=== PATIENT | female | born 1950 | race African-American/Black ===

== ENCOUNTER → 2019-12-06 | Day surgery (SDC) | payer MEDICARE, BC ==
[~2019-12-06] MED LIST: ALIVE MULTIVITAMIN; FENTANYL CITRATE/PF 100MCG/2 ML INJ ONE; GABAPENTIN300 MG PO; HYDROCHLOROTHIAZIDE; MAGNESIUM OXID400 MG PO; METOPROLOL SUCC25 MG; MIDAZOLAM HCL 2 MG/2 ML VIAL ONE; OR PHACO EYE KIT ONE; PREOP PHACO EYE KIT ONE; TELMISARTAN; VITAMIN D2400 UNIT
--- OUTSIDE RECORDS SUMMARY | 2019-12-06 09:58 | XMS REPORT | Summary of Care ---
Author Author Erica Dickson M.A. Unknown Address Unknown Phone Unavailable Care Team Providers Care Vending Supervisor Name Role Phone JASMIN Beltran, GO Unavailable Unavailable OLGA NG M.D. Unavailable Unavailable JUVENAL SINGLETARY Unavailable Unavailable OLGA NG MD Unavailable Unavailable Unavailable Unavailable Functional Status Name Dates Details Functional status health issues are not documented Status: Name Dates Details Cognitive status health issues are not documented Status: Problems Name Dates Details Sarcoid Iritis (364.11) Status: Active Pain in hand (729.5, M79.643) Status: Active Allergic rhinitis (477.9, J30.9) Status: Active Urinary tract infection (599.0, N39.0) Status: Active Lateral epicondylitis (726.32, M77.10) Status: Active Varicose veins (454.9, I83.90) Status: Active Vitreous disorder (379.29, H43.9) Status: Active Lipoma (214.9, D17.9) Status: Active Arthralgia of multiple sites (719.49, M25.50) Status: Active Edema (782.3, R60.9) Status: Active Esophageal reflux (530.81, K21.9) Status: Active Sinusitis (473.9, J32.9) Status: Active Peripheral vertigo (386.10, H81.399) Status: Active Anxiety (300.00, F41.9) Status: Active Headache (784.0, R51) Status: Active Facial paresthesia (782.0, R20.2) Status: Active Obesity (BMI 30.0-34.9) (278.00, E66.9) Status: Active Hirsutism (704.1, L68.0) Status: Active Visit for screening mammogram (V76.12, Z12.31) Status: Active Colon cancer screening (V76.51, Z12.11) Status: Active Vertigo (780.4, R42) Status: Active Cervicalgia (723.1, M54.2) Status: Active Nausea with vomiting (787.01, R11.2) Status: Active Axillary pain, right (729.5, M79.621) Status: Active Hematochezia (578.1, K92.1) Status: Active Abnormal x-ray of lumbar spine (793.7, R93.7) Status: Active Plantar fasciitis (728.71, M72.2) Status: Active Heel pain (729.5, M79.673) Status: Active Heel spur, right (726.73, M77.31) Status: Active Abdominal pain, RUQ (right upper quadrant) (789.01, R10.11) Status: Active Abdominal bloating (787.3, R14.0) Status: Active Sarcoidosis (135, D86.9) Status: Active Renal cyst, left (753.10, N28.1) Status: Active Earache (388.70, H92.09) Status: Active Dizziness (780.4, R42) Status: Active Tingling in extremities (782.0, R20.2) Status: Active Arthralgia (719.40, M25.50) Status: Active Degenerative cervical spinal stenosis (723.0, M48.02) Status: Active Dilated bile duct (576.8, K83.8) Status: Active Cataract, bilateral (366.9, H26.9) Status: Active Pain, abdominal, nonspecific (789.00, R10.9) Status: Active Abnormal MRI, neck (793.99, R93.89) Status: Active Cervical radiculopathy (723.4, M54.12) Status: Active Sciatica of right side without back pain (724.3, M54.31) Status: Active Hospital discharge follow-up (V67.59, Z09) Status: Active Right hip pain (719.45, M25.551) Status: Active Constipation (564.00, K59.00) Status: Active Essential (primary) hypertension (401.9, I10) Status: Active Hyperlipidemia (272.4, E78.5) Status: Active Microalbuminuria (791.0, R80.9) Status: Active TIA (transient ischemic attack) (435.9, G45.9) Status: Active Vitamin D insufficiency (268.9, E55.9) Status: Active Obstructive sleep apnea (327.23, G47.33) Status: Active BMI 30.0-30.9,adult (V85.30, Z68.30) Status: Active Medications Name Dates Details ProAir HFA 108 (90 Base) MCG/ACT Inhalation Aerosol Solution INHALE 1 TO 2 PUFFS EVERY 4 TO 6 HOURS NEEDED. Quantity: 1 OLGA NG M.D. Active Gabapentin 300 MG Oral Capsule Take 1 capsule by mouth twice a day * Quantity: 60 Refills: 2 OLGA NG M.D. * Start : 26-May-2014 Active Metoprolol Succinate ER 50 MG Oral Tablet Extended Release 24 Hour TAKE 1 TABLET DAILY * Quantity: 90 Refills: 0 GO CASTELLANOS M.D. * Start : 02-Dec-2014 Active Vitamin D (Ergocalciferol) 1.25 MG (75508 UT) Oral Capsule TAKE 1 CAPSULE WEEKLY. * Quantity: 12 Refills: 0 OLGA NG M.D. * Start : 30-May-2015 Active Magnesium Oxide 400 MG Oral Tablet TAKE 2 TABLET TWICE DAILY * Refills: 0 * Start : 15-Jan-2017 Active Meloxicam 15 MG Oral Tablet TAKE 1 TABLET BY MOUTH EVERY DAY--TAKE WITH FOOD * Quantity: 30 Refills: 0 JUVENAL SINGLETARY * Start : 31-Jan-2019 Active Telmisartan-HCTZ 80-12.5 MG Oral Tablet * Refills: 0 OLGA NG M.D. * Start : 05-Aug-2019 Active Allergies and Adverse Reactions Name Dates Details No Known Drug Allergies (Allergy) Status: Active Past Medical History Name Dates Details History of Abnormal auditory perception (388.40, H93.299) Status: Resolved History of allergic rhinitis (V12.69, Z87.09) Status: Resolved History of chest pain (V13.89, Z87.898) Status: Resolved History of chronic pharyngitis (V12.69, Z87.09) Status: Resolved History of Costochondritis (733.6, M94.0) Status: Resolved History of Cough (786.2, R05) Status: Resolved History of Cough variant asthma (493.82, J45.991) Status: Resolved History of diverticulitis of colon (V12.79, Z87.19) Status: Resolved History of esophageal reflux (V12.79, Z87.19) Status: Resolved History of headache (V13.89, Z87.898) Status: Resolved History of hiatal hernia (V12.79, Z87.19) Status: Resolved History of Joint pain of lower extremity (719.48, M25.50) Status: Resolved History of pleurisy (V12.69, Z87.09) Status: Resolved History of Tinnitus, objective (388.32, H93.19) Status: Resolved Procedures Procedure Dates Details History of Total Abdominal Hysterectomy Completed History of Cholecystectomy Completed History of Appendectomy Completed Immunization Name Dates Details Tdap (Boostrix) on: 2008 Zoster (Zostavax) Lot #: [id number] on: 02-Jun-2014 Fluzone 9 MCG/STRAIN [place] Lot #: [id number] on: 25-Jul-2016 Prevnar 13 Intramuscular Suspension Lot #: [id number] on: 01-Feb-2018 Fluzone High-Dose 0.5 ML Intramuscular Suspension Prefilled Syringe Lot #: [id number] on: 05-Aug-2019 Pneumovax 23 25 MCG/0.5ML Injection Injectable Lot #: [id number] on: 05-Aug-2019 Shingrix 50 MCG/0.5ML Intramuscular Suspension Reconstituted Lot #: [id number] on: 19-Sep-2019 Family History Name Dates Details Family history of Asthma (V17.5) Comments: Family History Status: Active Family history of Congenital Heart Disease Comments: Family History Status: Active Name Dates Details Family history of arthritis (V17.7, Z82.61) Status: Active Name Dates Details Family history of Coronary Artery Disease (V17.49) Status: Active Family history of Hypertension (V17.49) Status: Active Social History Name Dates Details - Status: Name Dates Details Never smoker Vital Signs Date Test Result Details [id number] BP Systolic 122 mm[Hg] Status: Comments: Location: [facility]; Position: Sitting BP Diastolic 80 mm[Hg] Status: Comments: Location: [facility]; Position: Sitting Height 66.5 in Status: Weight 196.5 lb Status: Body Mass Index Calculated 31.24 kg/m2 Status: Body Surface Area Calculated 2 m2 Status: Temperature 97.5 f Status: Comments: Method: Oral Heart Rate 57 /min Status: Results Date Description Value Details Results not documented Plan of Care Name Dates Details Planned Observations Planned Goals not documented Instructions Name Dates Details Instructions not documented Encounters Appointment; OLGA NG M.D. Encounter Diagnosis: Problem not documented On: 15-Dec-2017 14:00 Appointment; OLGA NG M.D. Encounter Diagnosis: Problem not documented On: 01-Feb-2018 11:00 Appointment; [facility] Encounter Diagnosis: Problem not documented On: 04-Feb-2018 10:00 Appointment; CHELSIE COOPER APRN Encounter Diagnosis: Problem not documented On: 01-Nov-2018 19:20 Appointment; OLGA NG M.D. Encounter Diagnosis: Problem not documented On: 22-Dec-2018 14:20 Appointment; OLGA NG M.D. Encounter Diagnosis: Problem not documented On: 05-Aug-2019 11:00 Appointment; [facility] Encounter Diagnosis: Problem not documented On: 19-Sep-2019 14:30 Appointment; OLGA NG M.D. Encounter Diagnosis: Problem not documented On: 22-Nov-2019 11:20
--- OUTSIDE RECORDS SUMMARY | 2019-12-06 09:58 | XMS REPORT | Summary of Care ---
Author Author BERENICE Beltran, OLGA Celaya Unknown Address Unknown Phone Unavailable Care Team Providers Care Tube And Manifold Builder Name Role Phone JASMIN Beltran, GO Unavailable [...] 02-Dec-2014 Active Vitamin D (Ergocalciferol) 1.25 MG (03449 UT) Oral Capsule TAKE 1 CAPSULE WEEKLY. [...] (Boostrix) on: 2008 Zoster (Zostavax) Lot #: [id number] on: 02-Jun-2014 Fluzone 9 MCG/STRAIN [place] Lot #: [id number] on: 25-Jul-2016 Prevnar 13 Intramuscular Suspension Lot #: [id number] on: 01-Feb-2018 Fluzone High-Dose 0.5 ML Intramuscular Suspension Prefilled Syringe Lot #: [id number] on: 05-Aug-2019 Pneumovax 23 25 MCG/0.5ML Injection Injectable Lot #: [id number] on: 05-Aug-2019 Shingrix 50 MCG/0.5ML Intramuscular Suspension [...] smoker Vital Signs Date Test Result Details No Known Vitals to report Results Date Description Value Details Results not documented Plan of Care Name Dates Details Planned Observations Planned Goals not documented Planned Encounters Appointment; OLGA NG M.D. On: 22-Nov-2019 11:20 Interventions Provided Medication Changes* Gabapentin 300 MG Oral Capsule - Renew Instructions Name Dates Details Instructions not documented Encounters Appointment; OLGA NG M.D. Encounter Diagnosis: Problem not documented On: 15-Dec-2017 14:00 Appointment; OLGA NG M.D. Encounter Diagnosis: Problem not documented On: 01-Feb-2018 11:00 Appointment; TRACI RAMOS Encounter Diagnosis: Problem not documented On: 04-Feb-2018 10:00 Appointment; CHELSIE COOPER NP Encounter Diagnosis: Problem not documented On: 01-Nov-2018 19:20 Appointment; OLGA NG M.D. Encounter Diagnosis: Problem not documented On: 22-Dec-2018 14:20 Appointment; OLGA NG M.D. Encounter Diagnosis: Problem not documented On: 05-Aug-2019 11:00 Appointment; [facility] Encounter Diagnosis: Problem not documented On: 19-Sep-2019 14:30
--- OUTSIDE RECORDS SUMMARY | 2019-12-06 09:58 | XMS REPORT | Summary of Care ---
Author Author BERENICE Beltran, OLGA Celaya Unknown Address Unknown Phone Unavailable Care Team Providers Care Bottle Hop Name Role Phone OLGA NG M.D. Unavailable Unavailable JUVENAL SINGLETARY Unavailable Unavailable OLGA NG MD Unavailable Unavailable Unavailable Unavailable Functional Status Name Dates Details Functional status health issues are not documented Status: Name Dates Details Cognitive status health issues are not documented Status: Problems Name Dates Details Sarcoid Iritis (364.11) Status: Active Allergic rhinitis (477.9, J30.9) Status: Active Varicose veins (454.9, I83.90) Status: Active Lipoma (214.9, D17.9) Status: Active Arthralgia of multiple sites (719.49, M25.50) Status: Active Esophageal reflux (530.81, K21.9) Status: Active Anxiety (300.00, F41.9) Status: Active Visit for screening mammogram (V76.12, Z12.31) Status: Active Colon cancer screening (V76.51, Z12.11) Status: Active Plantar fasciitis (728.71, M72.2) Status: Active Heel spur, right (726.73, M77.31) Status: Active Sarcoidosis (135, D86.9) Status: Active Renal cyst, left (753.10, N28.1) Status: Active Degenerative cervical spinal stenosis (723.0, M48.02) Status: Active Cervical radiculopathy (723.4, M54.12) Status: Active Sciatica of right side without back pain (724.3, M54.31) Status: Active Constipation (564.00, K59.00) Status: Active Hyperlipidemia (272.4, E78.5) Status: Active Microalbuminuria (791.0, R80.9) Status: Active TIA (transient ischemic attack) (435.9, G45.9) Status: Active Vitamin D insufficiency (268.9, E55.9) Status: Active Obstructive sleep apnea (327.23, G47.33) Status: Active BMI 30.0-30.9,adult (V85.30, Z68.30) Status: Active Cataract, bilateral (366.9, H26.9) Status: Active Pre-operative clearance (V72.84, Z01.818) Status: Active Essential (primary) hypertension (401.9, I10) Status: Active Medications Name Dates Details Gabapentin 300 MG Oral Capsule Take 1 capsule by mouth twice a day Quantity: 60 OLGA NG M.D. * Start : 26-May-2014 Active Metoprolol Succinate ER 25 MG Oral Tablet Extended Release 24 Hour * Refills: 0 OLGA NG M.D. * Start : 02-Dec-2014 Active Vitamin D (Ergocalciferol) 1.25 MG (33665 UT) Oral Capsule TAKE 1 CAPSULE WEEKLY. * Quantity: 12 Refills: 0 OLGA NG M.D. * Start : 30-May-2015 Active Magnesium Oxide 400 MG Oral Tablet TAKE 2 TABLET TWICE DAILY * Refills: 0 * Start : 15-Jan-2017 Active Meloxicam 15 MG Oral Tablet TAKE 1 TABLET BY MOUTH EVERY DAY--TAKE WITH FOOD * Quantity: 30 Refills: 0 JUVENAL SINGLETARY Start : 31-Jan-2019 Active Telmisartan-HCTZ 80-12.5 MG Oral Tablet * Refills: 0 OLGA NG M.D. * Start : 05-Aug-2019 Active Allergies and Adverse Reactions Name Dates Details No Known Drug Allergies (Allergy) Status: Active Past Medical History Name Dates Details History of Abdominal bloating (787.3, R14.0) Status: Resolved History of Abdominal pain, RUQ (right upper quadrant) (789.01, R10.11) Status: Resolved History of Abnormal auditory perception (388.40, H93.299) Status: Resolved History of Abnormal MRI, neck (793.99, R93.89) Status: Resolved History of Abnormal x-ray of lumbar spine (793.7, R93.7) Status: Resolved History of allergic rhinitis (V12.69, Z87.09) Status: Resolved History of Axillary pain, right (729.5, M79.621) Status: Resolved History of bloody stools (V12.79, Z87.19) Status: Resolved History of chest pain (V13.89, Z87.898) Status: Resolved History of chronic pharyngitis (V12.69, Z87.09) Status: Resolved History of Costochondritis (733.6, M94.0) Status: Resolved History of Cough (786.2, R05) Status: Resolved History of Cough variant asthma (493.82, J45.991) Status: Resolved History of Dilated bile duct (576.8, K83.8) Status: Resolved History of diverticulitis of colon (V12.79, Z87.19) Status: Resolved History of dizziness (V13.89, Z87.898) Status: Resolved History of earache (V12.49, Z86.69) Status: Resolved History of edema (V13.89, Z87.898) Status: Resolved History of esophageal reflux (V12.79, Z87.19) Status: Resolved History of Facial paresthesia (782.0, R20.2) Status: Resolved History of headache (V13.89, Z87.898) Status: Resolved History of headache (V13.89, Z87.898) Status: Resolved History of Heel pain (729.5, M79.673) Status: Resolved History of hiatal hernia (V12.79, Z87.19) Status: Resolved History of Hirsutism (704.1, L68.0) Status: Resolved History of Hospital discharge follow-up (V67.59, Z09) Status: Resolved History of joint pain (V13.59, Z87.39) Status: Resolved History of Joint pain of lower extremity (719.48, M25.50) Status: Resolved History of lateral epicondylitis (V13.89, Z87.898) Status: Resolved History of nausea and vomiting (V12.79, Z87.898) Status: Resolved History of neck pain (V13.59, Z87.39) Status: Resolved History of Obesity (BMI 30.0-34.9) (278.00, E66.9) Status: Resolved History of Pain in hand (729.5, M79.643) Status: Resolved History of Pain, abdominal, nonspecific (789.00, R10.9) Status: Resolved History of Peripheral vertigo (386.10, H81.399) Status: Resolved History of pleurisy (V12.69, Z87.09) Status: Resolved History of Right hip pain (719.45, M25.551) Status: Resolved History of sinusitis (V12.69, Z87.09) Status: Resolved History of Tingling in extremities (782.0, R20.2) Status: Resolved History of Tinnitus, objective (388.32, H93.19) Status: Resolved History of urinary tract infection (V13.02, Z87.440) Status: Resolved History of vertigo (V12.49, Z87.898) Status: Resolved Procedures Procedure Dates Details [QLH] CMP W/EGFR Date: 22-Nov-2019 [QLH] CBC (INCLUDES DIFF/PLT) Date: 22-Nov-2019 [QLH] PROTHROMBIN W/INR + PARTIAL THROMBOPLASTIN TIMES Date: 22-Nov-2019 History of Total Abdominal Hysterectomy Completed History of Cholecystectomy Completed History of Appendectomy Completed Immunization Name Dates Details Tdap (Boostrix) on: 2008 Zoster (Zostavax) Lot #: [id number] on: 02-Jun-2014 Fluzone 9 MCG/STRAIN [place] Lot #: [id number] on: 25-Jul-2016 Prevnar 13 Intramuscular Suspension Lot #: [id number] on: 01-Feb-2018 Fluzone High-Dose 0.5 ML Intramuscular Suspension Prefilled Syringe Lot #: [id number] on: 05-Aug-2019 Pneumovax 23 25 MCG/0.5ML Injection Injectable Lot #: [id number] on: 05-Aug-2019 Shingrix 50 MCG/0.5ML Intramuscular Suspension [...] smoker Vital Signs Date Test Result Details [id number] BP Systolic 122 mm[Hg] Status: Comments: Location: [facility]; Position: Sitting BP Diastolic 80 mm[Hg] Status: Comments: Location: [facility]; Position: Sitting Height 66.5 in Status: Weight 196.5 lb Status: Body Mass Index Calculated 31.24 kg/m2 Status: Body Surface Area Calculated 2 m2 Status: Temperature 97.5 f Status: Comments: Method: Oral Heart Rate 57 /min Status: Results Date Description Value Details Results not documented Plan of Care Name Dates Details Planned Observations Planned Goals not documented Interventions Provided Labs/Procedures/Imaging* [QLH] CBC (INCLUDES DIFF/PLT); To Be Done: 22 Nov 2019 * [QLH] CMP W/EGFR; To Be Done: 22 Nov 2019 * [QLH] PROTHROMBIN W/INR + PARTIAL THROMBOPLASTIN TIMES; To Be Done: 22 Nov 2019 * EKG (In Office); Done: 22 Nov 2019 Discussion/Summary* Chest x ray was done in the office today : no acute finding awaiting formal report Instructions Name Dates Details Instructions not documented Encounters Appointment; OLGA NG M.D. Encounter Diagnosis: Problem not documented On: 15-Dec-2017 14:00 Appointment; OLGA NG M.D. Encounter Diagnosis: Problem not documented On: 01-Feb-2018 11:00 Appointment; [facility] Encounter Diagnosis: Problem not documented On: 04-Feb-2018 [...]
--- OUTSIDE RECORDS SUMMARY | 2019-12-06 09:58 | XMS REPORT | Summary of Care ---
Author Author BERENICE Beltran, OLGA Celaya Unknown Address Unknown Phone Unavailable Care Team Providers Care Saxophone Assembler Name Role Phone OLGA NG M.D. Unavailable [...] by mouth twice a day Quantity: 60 BERENICE Beltran, BROWNURICE * Start : 26-May-2014 Active Metoprolol Succinate ER 25 MG Oral Tablet Extended Release 24 Hour * Refills: 0 OLGA NG M.D. * Start : 02-Dec-2014 Active Vitamin D (Ergocalciferol) 1.25 MG (61102 UT) Oral Capsule TAKE 1 CAPSULE WEEKLY. * Quantity: 12 Refills: 0 OLGA NG M.D. * Start : 30-May-2015 Active Magnesium Oxide 400 MG Oral Tablet TAKE 2 TABLET TWICE DAILY * Refills: 0 M.A. * Start : 15-Jan-2017 Active Meloxicam 15 MG Oral Tablet TAKE 1 TABLET BY MOUTH EVERY DAY--TAKE WITH FOOD * Quantity: 30 Refills: 0 FABRICIO P.AJUVENAL Marshall * Start : 31-Jan-2019 Active Telmisartan-HCTZ 80-12.5 [...] (Boostrix) on: 2008 Zoster (Zostavax) Lot #: [id number] on: 02-Jun-2014 Fluzone 9 MCG/STRAIN [place] Lot #: [id number] on: 25-Jul-2016 Prevnar 13 Intramuscular Suspension Lot #: [id number] on: 01-Feb-2018 Fluzone High-Dose 0.5 ML Intramuscular Suspension Prefilled Syringe Lot #: [id number] on: 05-Aug-2019 Pneumovax 23 25 MCG/0.5ML Injection Injectable Lot #: [id number] on: 05-Aug-2019 Shingrix 50 MCG/0.5ML Intramuscular Suspension [...] smoker Vital Signs Date Test Result Details [id number] BP Systolic 122 mm[Hg] Status: Comments: Location: [facility]; Position: Sitting BP Diastolic 80 mm[Hg] Status: Comments: Location: [facility]; Position: Sitting Height 66.5 in Status: Weight 196.5 lb Status: Body Mass Index Calculated 31.24 kg/m2 Status: Body Surface Area Calculated 2 m2 Status: Temperature 97.5 f Status: Comments: Method: Oral Heart Rate 57 /min Status: Results Date Description Value Details [id number] [U] XRAY CHEST 2 VWS [id number] XR CHEST 2 VWS EXAM: XR CHEST 2 VWS DATE: 11/22/2019 11:29 AM AUTOTRANSFUSIONIST INDICATION: Preop clearance COMPARISON: 02/07/2014 TECHNIQUE: PA and lateral chest radiographs DISCUSSION: Lungs are symmetrically expanded.No pulmonary or pleural-based abnormality is identified. Pulmonary vascularity is normal. The heart size is normal. No acute bony abnormality is identified. IMPRESSION: No acute cardiopulmonary abnormality. 11/22/2019 11:38 AM AUTOTRANSFUSIONIST Dawit Garza Plan of Care Name Dates Details Planned Observations Planned Goals not documented Interventions Provided Labs/Procedures/Imaging* [U] XRAY CHEST 2 VWS [id number]; Done: 22 Nov 2019 Discussion/Summary* chest x ray is normal Instructions Name Dates Details Instructions not documented [...]
--- OUTSIDE RECORDS SUMMARY | 2019-12-06 09:59 | XMS REPORT | Summary of Care ---
Author Author BERENICE Beltran, OLGA Celaya Unknown Address Unknown Phone Unavailable Care Team Providers Care Applied Behavior Specialist Name Role Phone OLGA NG M.D. 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 * Start : 02-Dec-2014 Active Vitamin D (Ergocalciferol) 1.25 MG (26444 UT) Oral Capsule TAKE 1 CAPSULE WEEKLY. * Quantity: 12 Refills: 0 OLGA NG M.D. * Start : 30-May-2015 Active Magnesium Oxide 400 MG Oral Tablet TAKE 2 TABLET TWICE DAILY * Refills: 0 M.A. * Start : 15-Jan-2017 Active Meloxicam 15 MG Oral Tablet TAKE 1 TABLET BY MOUTH EVERY DAY--TAKE WITH FOOD * Quantity: 30 Refills: 0 FABRICIO Oneill.AJUVENAL Marshall * Start : 31-Jan-2019 Active Telmisartan-HCTZ [...] Status: Resolved Procedures Procedure Dates Details [QLH] CBC (INCLUDES DIFF/PLT) Date: 24-Nov-2019 History of Total Abdominal Hysterectomy Completed History of Cholecystectomy Completed History of Appendectomy Completed Immunization Name Dates Details Tdap (Boostrix) on: 2008 Zoster (Zostavax) Lot #: [id number] on: 02-Jun-2014 Fluzone 9 MCG/STRAIN [place] Lot #: [id number] on: 25-Jul-2016 Prevnar 13 Intramuscular Suspension Lot #: [id number] on: 01-Feb-2018 Fluzone High-Dose 0.5 ML Intramuscular Suspension Prefilled Syringe Lot #: [id number] on: 05-Aug-2019 Pneumovax 23 25 MCG/0.5ML Injection Injectable Lot #: [id number] on: 05-Aug-2019 Shingrix 50 MCG/0.5ML Intramuscular Suspension [...] Details - Status: Name Dates Details Never smoked tobacco (finding) Vital Signs Date Test Result Details 20-[id number]:23 Systolic blood pressure 122 mm[Hg] Status: Comments: Location: RUE; Position: Sitting Diastolic blood pressure 80 mm[Hg] Status: Comments: Location: RUE; Position: Sitting Body height 66.5 in Status: Weight 196.5 lb Status: Body mass index (BMI) [Ratio] 31.24 kg/m2 Status: Body surface area Derived from formula 2 m2 Status: Body temperature 97.5 f Status: Comments: Method: Oral Heart Rate 57 /min Status: Results Date Description Value Details [id number] [U] XRAY CHEST 2 VWS [id number] XR CHEST 2 VWS EXAM: XR CHEST 2 VWS DATE: 11/22/2019 11:29 AM MOSAIC TILER INDICATION: Preop clearance COMPARISON: 02/07/2014 TECHNIQUE: PA and lateral chest radiographs DISCUSSION: Lungs are symmetrically expanded.No pulmonary or pleural-based abnormality is identified. Pulmonary vascularity is normal. The heart size is normal. No acute bony abnormality is identified. IMPRESSION: No acute cardiopulmonary abnormality. 11/22/2019 11:38 AM MOSAIC TILER Dawit Barrosanaeliecer :39 [QLH] CBC (INCLUDES DIFF/PLT) WBC 3.2 {K/CMM} (Below low threshold) Range: 3.7-10.4 RBC 4.18 {M/CMM} (Below low threshold) Range: 4.20-5.40 Hgb 13.3 g/dl Range: 12.0-16.0 Hct 39.8 % Range: 36.0-48.0 MCV 95.2 fL Range: 80.0-98.0 MCH 31.8 pg (Above high threshold) Range: 27.0-31.0 MCHC 33.4 g/dl Range: 32.0-36.0 RDW 14.4 % Range: 11.5-14.5 Platelet 250 {K/CMM} Range: 133-450 Mean Platelet Volume 9.2 fL Range: 7.4-10.4 :39 [QLH] Differential Segmented Neutrophils 52.3 % Range: 45.0-75.0 Monocytes 4.1 % Range: 2.0-12.0 Lymphocytes 40.5 % (Above high threshold) Range: 20.0-40.0 Eosinophils 2.4 % Range: 0.0-4.0 Basophils 0.7 % Range: 0.0-1.0 Segs-Bands # 1.7 {K/CMM} Range: 1.5-8.1 Lymphocytes # 1.3 {K/CMM} Range: 1.0-5.5 Monocytes # 0.1 {K/CMM} Range: 0.0-0.8 Eosinophils # 0.1 {K/CMM} Range: 0.0-0.5 16-[id number] [QLH] CMP W/EGFR Sodium Level 142 {mEq/l} Range: 135-145 Potassium Level 3.9 {mEq/l} Range: 3.5-5.1 Chloride Level 105 {mEq/l} Range: 95-109 Carbon Dioxide 32 {mEq/l} Range: 24-32 AGAP 8.9 {mEq/l} (Below low threshold) Range: 10.0-20.0 Glucose Lvl 90 mg/dl Range: 70-99 Comments: Adult reference range values reflect the clinical guidelinesof the [place] [employer]. Creatinine Lvl 0.80 mg/dl Range: 0.50-1.40 Blood Urea Nitrogen 10 mg/dl Range: 7-22 BUN/Creatinine Ratio 12 Range: 6-25 Total Protein 7.4 g/dl Range: 6.4-8.4 Albumin Lvl 3.9 g/dl Range: 3.5-5.0 Globulin 3.5 g/dl Range: 2.7-4.2 A/G Ratio 1.1 Range: 0.7-1.6 Calcium Level Total 9.3 mg/dl Range: 8.5-10.5 ALT 16 u/l Range: 0-65 AST 12 u/l Range: 0-37 Bili Total 0.6 mg/dl Range: 0.2-1.3 Alk Phos 67 u/l Range: 39-136 Comments: The pediatric reference ranges for this test represent a CLSI- basedtransference of the CALIPER database of pediatric reference intervals to the[facility] analyzer (Clinical Biochemistry 46 (2013): 2042-7443). [facility] [employer] has not internally validated these referenceranges and therefore they should be used only in the context of a thoroughclinical assessment. eGFR 77 {ML/MIN/1.7} Comments: The eGFR is calculated using the CKD-EPI formula. In most young, healthyindividuals the eGFR will be >90 mL/min/1.73m2. The eGFR declines with age. AneGFR of 60-89 may be normal in some populations, particularly the elderly, forwhom the CKD-EPI formula has not been extensively validated. Use of the eGFR isnot recommended in the following populations:Individuals with unstable creatinine concentrations, including patients and those with serious co-morbid conditions.Patients with extremes in muscle mass or diet.The data above are obtained from the National Kidney Disease Education Program(NKDEP) which additionally recommends that when the eGFR is used in patientswith extremes of body mass index for purposes of drug dosing, the eGFR shouldbe multiplied by the estimated BMI. :39 [QL] PROTHROMBIN W/INR + PARTIAL THROMBOPLASTIN TIMES PT 12.3 {sec} Range: 12.0-14.7 International Normalization Ratio 0.92 Range: 0.85-1.17 Comments: RECOMMENDED RANGES FOR PROTIME INR: 2.0-3.0 for most medical and surgical thromboembolic states. 2.5-3.5 for artificial heart valves and recurrent embolism.INR SHOULD BE USED ONLY FOR PATIENTS ON STABLE ANTICOAGULANT THERAPY. Partial Thromboplastin Time 30.3 {sec} Range: 22.9-35.8 Comments: Heparin Therapeutic Range: 67 - 87 Seconds :39 [QL] FOLATE, SERUM Folate Level 6.8 ng/ml Range: >=3.0 :39 [QL] VITAMIN B12 Vitamin B12 Level 367 pg/ml Range: 254-1320 Plan of Care Name Dates Details Planned Observations Planned Goals not documented Instructions Name Dates Details Instructions not documented Encounters Appointment; OLGA NG M.D. Encounter Diagnosis: Problem not documented On: 15-Dec-2017 14:00 Appointment; OLGA NG M.D. Encounter Diagnosis: Problem not documented On: 01-Feb-2018 11:00 Appointment; BELLAIREFAMMED, BONEDENSITY Encounter Diagnosis: Problem not documented On: 04-Feb-2018 10:00 Appointment; CHELSIE COOPER APRN Encounter Diagnosis: Problem not documented On: 01-Nov-2018 19:20 Appointment; OLGA NG M.D. Encounter Diagnosis: Problem not documented On: 22-Dec-2018 14:20 Appointment; OLGA NG M.D. Encounter Diagnosis: Problem not documented On: 05-Aug-2019 11:00 Appointment; FAMILY AKHIL Encounter Diagnosis: Problem not documented On: 19-Sep-2019 14:30 Appointment; OLGA GN M.D. Encounter Diagnosis: Problem not documented On: 22-Nov-2019 11:20
--- OUTSIDE RECORDS SUMMARY | 2019-12-06 09:59 | XMS REPORT | Summary of Care ---
Author Author BERENICE Beltran, OLGA Celaya Unknown Address Unknown Phone Unavailable Care Team Providers Care Coating Machine Operator Name Role Phone OLGA NG M.D. Unavailable [...] diastolic heart failure (428.32, I50.32) Status: Active Medications Name Dates Details Gabapentin 300 MG Oral Capsule Take 1 capsule by mouth twice a day Quantity: 60 OLGA NG M.D. * Start : 26-May-2014 Active Metoprolol Succinate ER 25 MG Oral Tablet Extended Release 24 Hour * Refills: 0 OLGA NG M.D. * Start : 02-Dec-2014 Active Vitamin D (Ergocalciferol) 1.25 MG (07509 UT) Oral Capsule TAKE 1 CAPSULE WEEKLY. [...] Z87.898) Status: Resolved Procedures Procedure Dates Details History of Total Abdominal Hysterectomy Completed History of Cholecystectomy Completed History of Appendectomy Completed Immunization Name Dates Details Tdap (Boostrix) on: 2008 Zoster (Zostavax) Lot #: [id number] on: 02-Jun-2014 Fluzone 9 MCG/STRAIN [place] Lot #: [id number] on: 25-Jul-2016 Prevnar 13 Intramuscular Suspension Lot #: [id number] on: 01-Feb-2018 Fluzone High-Dose 0.5 ML Intramuscular Suspension Prefilled Syringe Lot #: [id number] on: 05-Aug-2019 Pneumovax 23 25 MCG/0.5ML Injection Injectable Lot #: [id number] on: 05-Aug-2019 Shingrix 50 MCG/0.5ML Intramuscular Suspension [...] smoker Vital Signs Date Test Result Details [id number] BP Systolic 122 mm[Hg] Status: Comments: Location: RUE; Position: Sitting BP Diastolic 80 mm[Hg] Status: Comments: Location: RUE; Position: Sitting Height 66.5 in Status: Weight 196.5 lb Status: Body Mass Index Calculated 31.24 kg/m2 Status: Body Surface Area Calculated 2 m2 Status: Temperature 97.5 f Status: Comments: Method: Oral Heart Rate 57 /min Status: Results Date Description Value Details [id number] [U] XRAY CHEST 2 VWS [id number] XR CHEST 2 VWS EXAM: XR CHEST 2 VWS DATE: 11/22/2019 11:29 AM FASHION MERCHANDISER INDICATION: Preop clearance COMPARISON: 02/07/2014 TECHNIQUE: PA and lateral chest radiographs DISCUSSION: Lungs are symmetrically expanded.No pulmonary or pleural-based abnormality is identified. Pulmonary vascularity is normal. The heart size is normal. No acute bony abnormality is identified. IMPRESSION: No acute cardiopulmonary abnormality. 11/22/2019 11:38 AM FASHION MERCHANDISER Dawit Shirlore 96-[id number] [QLH] CBC (INCLUDES DIFF/PLT) WBC 3.2 {K/CMM} [...] 0.0-0.8 Eosinophils # 0.1 {K/CMM} Range: 0.0-0.5 :39 [[facility]] CMP W/EGFR Sodium Level 142 {mEq/l} Range: 135-145 Potassium Level 3.9 {mEq/l} Range: 3.5-5.1 Chloride Level 105 {mEq/l} Range: 95-109 Carbon Dioxide 32 {mEq/l} Range: 24-32 AGAP 8.9 {mEq/l} (Below low threshold) Range: 10.0-20.0 Glucose Lvl 90 mg/dl Range: 70-99 Comments: Adult reference range values reflect the clinical guidelinesof the [place] Diabetes Association. Creatinine Lvl 0.80 mg/dl Range: [...] CALIPER database of pediatric reference intervals to the[facility] analyzer (Clinical Biochemistry 46 (2013): 7946-7791). [facility] has not internally validated these referenceranges and [...] eGFR shouldbe multiplied by the estimated BMI. 88-[id number]:39 [[facility]] PROTHROMBIN W/INR + PARTIAL THROMBOPLASTIN TIMES PT [...] Heparin Therapeutic Range: 67 - 87 Seconds Plan of Care Name Dates Details Planned [...] Problem not documented On: 05-Aug-2019 11:00 Appointment; BELLAIRE, FAMILY Encounter Diagnosis: Problem not documented On: 19-Sep-2019 14:30
--- OUTSIDE RECORDS SUMMARY | 2019-12-06 09:59 | XMS REPORT | Summary of Care ---
Author Author BERENICE Beltran, OLGA Celaya Unknown Address Unknown Phone Unavailable Care Team Providers Care Groundhand Name Role Phone OLGA NG M.D. Unavailable [...] 02-Dec-2014 Active Vitamin D (Ergocalciferol) 1.25 MG (32416 UT) Oral Capsule TAKE 1 CAPSULE WEEKLY. [...] (Boostrix) on: 2008 Zoster (Zostavax) Lot #: [id number] on: 02-Jun-2014 Fluzone 9 MCG/STRAIN [place] Lot #: [id number] on: 25-Jul-2016 Prevnar 13 Intramuscular Suspension Lot #: [id number] on: 01-Feb-2018 Fluzone High-Dose 0.5 ML Intramuscular Suspension Prefilled Syringe Lot #: [id number] on: 05-Aug-2019 Pneumovax 23 25 MCG/0.5ML Injection Injectable Lot #: [id number] on: 05-Aug-2019 Shingrix 50 MCG/0.5ML Intramuscular Suspension [...] smoker Vital Signs Date Test Result Details [id number] BP Systolic 122 mm[Hg] Status: Comments: Location: RUE; Position: Sitting BP Diastolic 80 mm[Hg] Status: Comments: Location: RUE; Position: Sitting Height 66.5 in Status: Weight 196.5 lb Status: Body Mass Index Calculated 31.24 kg/m2 Status: Body Surface Area Calculated 2 m2 Status: Temperature 97.5 f Status: Comments: Method: Oral Heart Rate 57 /min Status: Results Date Description Value Details [id number] [U] XRAY CHEST 2 VWS [id number] XR CHEST 2 VWS EXAM: XR CHEST 2 VWS DATE: 11/22/2019 11:29 AM PLANT SCIENCE PROFESSOR INDICATION: Preop clearance COMPARISON: 02/07/2014 TECHNIQUE: PA and lateral chest radiographs DISCUSSION: Lungs are symmetrically expanded.No pulmonary or pleural-based abnormality is identified. Pulmonary vascularity is normal. The heart size is normal. No acute bony abnormality is identified. IMPRESSION: No acute cardiopulmonary abnormality. 11/22/2019 11:38 AM PLANT SCIENCE PROFESSOR Dawit Garza [id number] [QLH] CBC (INCLUDES DIFF/PLT) WBC 3.2 {K/CMM} [...] Mean Platelet Volume 9.2 fL Range: 7.4-10.4 74-[id number]:39 [QLH] Differential Segmented Neutrophils 52.3 % Range: 45.0-75.0 Monocytes 4.1 % Range: 2.0-12.0 Lymphocytes 40.5 % (Above high threshold) Range: 20.0-40.0 Eosinophils 2.4 % Range: 0.0-4.0 Basophils 0.7 % Range: 0.0-1.0 Segs-Bands # 1.7 {K/CMM} Range: 1.5-8.1 Lymphocytes # 1.3 {K/CMM} Range: 1.0-5.5 Monocytes # 0.1 {K/CMM} Range: 0.0-0.8 Eosinophils # 0.1 {K/CMM} Range: 0.0-0.5 :39 [QLH] CMP W/EGFR Sodium Level 142 {mEq/l} Range: 135-145 Potassium Level 3.9 {mEq/l} Range: 3.5-5.1 Chloride Level 105 {mEq/l} Range: 95-109 Carbon Dioxide 32 {mEq/l} Range: 24-32 AGAP 8.9 {mEq/l} (Below low threshold) Range: 10.0-20.0 Glucose Lvl 90 mg/dl Range: 70-99 Comments: Adult reference range values reflect the clinical guidelinesof the [place] Diabetes Association. Creatinine Lvl 0.80 mg/dl Range: [...] CALIPER database of pediatric reference intervals to the[facility] [employer] analyzer (Clinical Biochemistry 46 (2013): 5053-1433). [facility] has not internally validated these referenceranges and [...] eGFR shouldbe multiplied by the estimated BMI. [id number]-[id number]:39 [[facility]] PROTHROMBIN W/INR + PARTIAL THROMBOPLASTIN TIMES [...] Observations Planned Goals not documented Interventions Provided Discussion/Summary* labs : WBC is sl low, sent for more labs, may repeat in 2-3 weeks, Instructions Name Dates Details Instructions not documented [...] Problem not documented On: 22-Dec-2018 14:20 Appointment; LOGA NG M.D. Encounter Diagnosis: Problem not documented On: 05-Aug-2019 11:00 Appointment; FAMILY AKHIL Encounter Diagnosis: Problem not documented On: 19-Sep-2019 14:30 Appointment; OLGA NG M.D. Encounter Diagnosis: Problem not documented On: 22-Nov-2019 11:20
--- OUTSIDE RECORDS SUMMARY | 2019-12-06 09:59 | XMS REPORT | Summary of Care ---
Author Author BERENICE Beltran, OLGA Celaya Unknown Address Unknown Phone Unavailable Care Team Providers Care Head Bander And Liner Operator Name Role Phone OLGA NG M.D. [...] 02-Dec-2014 Active Vitamin D (Ergocalciferol) 1.25 MG (60636 UT) Oral Capsule TAKE 1 CAPSULE WEEKLY. [...] (Boostrix) on: 2008 Zoster (Zostavax) Lot #: [id number] on: 02-Jun-2014 Fluzone 9 MCG/STRAIN [place] Lot #: [id number] on: 25-Jul-2016 Prevnar 13 Intramuscular Suspension Lot #: [id number] on: 01-Feb-2018 Fluzone High-Dose 0.5 ML Intramuscular Suspension Prefilled Syringe Lot #: [id number] on: 05-Aug-2019 Pneumovax 23 25 MCG/0.5ML Injection Injectable Lot #: [id number] on: 05-Aug-2019 Shingrix 50 MCG/0.5ML Intramuscular Suspension [...] smoker Vital Signs Date Test Result Details 26-[id number]:23 BP Systolic 122 mm[Hg] Status: Comments: Location: RUE; Position: Sitting BP Diastolic 80 mm[Hg] Status: Comments: Location: [facility]; Position: Sitting Height 66.5 in Status: Weight 196.5 lb Status: Body Mass Index Calculated 31.24 kg/m2 Status: Body Surface Area Calculated 2 m2 Status: Temperature 97.5 f Status: Comments: Method: Oral Heart Rate 57 /min Status: Results Date Description Value Details [id number] [U] XRAY CHEST 2 VWS [id number] XR CHEST 2 VWS EXAM: XR CHEST 2 VWS DATE: 11/22/2019 11:29 AM PLANT OPERATIONS VICE PRESIDENT INDICATION: Preop clearance COMPARISON: 02/07/2014 TECHNIQUE: PA and lateral chest radiographs DISCUSSION: Lungs are symmetrically expanded.No pulmonary or pleural-based abnormality is identified. Pulmonary vascularity is normal. The heart size is normal. No acute bony abnormality is identified. IMPRESSION: No acute cardiopulmonary abnormality. 11/22/2019 11:38 AM PLANT OPERATIONS VICE PRESIDENT Dawit Garza [id number] [QLH] CBC (INCLUDES DIFF/PLT) WBC 3.2 {K/CMM} [...] Mean Platelet Volume 9.2 fL Range: 7.4-10.4 78-[id number] [QLH] Differential Segmented Neutrophils 52.3 % Range: 45.0-75.0 Monocytes 4.1 % Range: 2.0-12.0 Lymphocytes 40.5 % (Above high threshold) Range: 20.0-40.0 Eosinophils 2.4 % Range: 0.0-4.0 Basophils 0.7 % Range: 0.0-1.0 Segs-Bands # 1.7 {K/CMM} Range: 1.5-8.1 Lymphocytes # 1.3 {K/CMM} Range: 1.0-5.5 Monocytes # 0.1 {K/CMM} Range: 0.0-0.8 Eosinophils # 0.1 {K/CMM} Range: 0.0-0.5 09-Rkh-061523:39 [QLH] CMP W/EGFR Sodium Level 142 {mEq/l} Range: 135-145 Potassium Level 3.9 {mEq/l} Range: 3.5-5.1 Chloride Level 105 {mEq/l} Range: 95-109 Carbon Dioxide 32 {mEq/l} Range: 24-32 AGAP 8.9 {mEq/l} (Below low threshold) Range: 10.0-20.0 Glucose Lvl 90 mg/dl Range: 70-99 Comments: Adult reference range values reflect the clinical guidelinesof the [place] Diabetes Association. Creatinine Lvl 0.80 mg/dl Range: [...] CALIPER database of pediatric reference intervals to the[facility] AssociationClinical [employer] analyzer (Clinical Biochemistry 46 (2013): 1436-0954). [facility] has not internally validated these referenceranges and [...] eGFR shouldbe multiplied by the estimated BMI. 92-Bok-316702:39 [[facility]] PROTHROMBIN W/INR + PARTIAL THROMBOPLASTIN TIMES PT [...] Planned Goals not documented Interventions Provided Labs/Procedures/Imaging* EKG (In Office); Done: 22 Nov 2019 Plan* Addendum 11/23/2019 * Pt is cleared for surgery Discussion/Summary* Chest x ray was done in the office today : no acute finding awaiting formal report Instructions Name Dates Details Instructions not documented Encounters Appointment; OLGA GN M.D. Encounter Diagnosis: Problem not documented On: 15-Dec-2017 14:00 Appointment; OLGA NG M.D. Encounter Diagnosis: Problem not documented On: 01-Feb-2018 11:00 Appointment; DANIELA RAMOSDENSICHERELLE Encounter Diagnosis: Problem not documented On: 04-Feb-2018 [...]
--- OUTSIDE RECORDS SUMMARY | 2019-12-06 09:59 | XMS REPORT | Summary of Care ---
Author Author BERENICE Beltran, OLGA Celaya Unknown Address Unknown Phone Unavailable Care Team Providers Care Assistance Coordinator Name Role Phone Raine Meyer M.A. Unavailable Unavailable OLGA NG M.D. Unavailable Unavailable [...] 02-Dec-2014 Active Vitamin D (Ergocalciferol) 1.25 MG (60181 UT) Oral Capsule TAKE 1 CAPSULE WEEKLY. [...] (Boostrix) on: 2008 Zoster (Zostavax) Lot #: [id number] on: 02-Jun-2014 Fluzone 9 MCG/STRAIN [place] Lot #: [id number] on: 25-Jul-2016 Prevnar 13 Intramuscular Suspension Lot #: [id number] on: 01-Feb-2018 Fluzone High-Dose 0.5 ML Intramuscular Suspension Prefilled Syringe Lot #: [id number] on: 05-Aug-2019 Pneumovax 23 25 MCG/0.5ML Injection Injectable Lot #: [id number] on: 05-Aug-2019 Shingrix 50 MCG/0.5ML Intramuscular Suspension [...] smoker Vital Signs Date Test Result Details [id number]-[id number] BP Systolic 122 mm[Hg] Status: Comments: Location: RUE; Position: Sitting BP Diastolic 80 mm[Hg] Status: Comments: Location: RUE; Position: Sitting Height 66.5 in Status: Weight 196.5 lb Status: Body Mass Index Calculated 31.24 kg/m2 Status: Body Surface Area Calculated 2 m2 Status: Temperature 97.5 f Status: Comments: Method: Oral Heart Rate 57 /min Status: Results Date Description Value Details [id number] [U] XRAY CHEST 2 VWS [id number] XR CHEST 2 VWS EXAM: XR CHEST 2 VWS DATE: 11/22/2019 11:29 AM CASE SEALER INDICATION: Preop clearance COMPARISON: 02/07/2014 TECHNIQUE: PA and lateral chest radiographs DISCUSSION: Lungs are symmetrically expanded.No pulmonary or pleural-based abnormality is identified. Pulmonary vascularity is normal. The heart size is normal. No acute bony abnormality is identified. IMPRESSION: No acute cardiopulmonary abnormality. 11/22/2019 11:38 AM CASE SEALER Dawit Garza :39 [QLH] CBC (INCLUDES DIFF/PLT) WBC 3.2 [...] Mean Platelet Volume 9.2 fL Range: 7.4-10.4 99-[id number] [QLH] Differential Segmented Neutrophils 52.3 % Range: 45.0-75.0 Monocytes 4.1 % Range: 2.0-12.0 Lymphocytes 40.5 % (Above high threshold) Range: 20.0-40.0 Eosinophils 2.4 % Range: 0.0-4.0 Basophils 0.7 % Range: 0.0-1.0 Segs-Bands # 1.7 {K/CMM} Range: 1.5-8.1 Lymphocytes # 1.3 {K/CMM} Range: 1.0-5.5 Monocytes # 0.1 {K/CMM} Range: 0.0-0.8 Eosinophils # 0.1 {K/CMM} Range: 0.0-0.5 56-[id number] [[facility]] CMP W/EGFR Sodium Level 142 {mEq/l} Range: 135-145 Potassium Level 3.9 {mEq/l} Range: 3.5-5.1 Chloride Level 105 {mEq/l} Range: 95-109 Carbon Dioxide 32 {mEq/l} Range: 24-32 AGAP 8.9 {mEq/l} (Below low threshold) Range: 10.0-20.0 Glucose Lvl 90 mg/dl Range: 70-99 Comments: Adult reference range values reflect the clinical guidelinesof the [place] Diabetes Association. Creatinine Lvl 0.80 mg/dl Range: [...] CALIPER database of pediatric reference intervals to the[employer] analyzer (Clinical Biochemistry 46 (2013): 4593-2535). [facility] [employer] has not internally validated these referenceranges [...] eGFR shouldbe multiplied by the estimated BMI. 77-[id number]:39 [QLH] PROTHROMBIN W/INR + PARTIAL THROMBOPLASTIN TIMES PT [...] of Care Name Dates Details Planned Observations [QLH] CBC (INCLUDES DIFF/PLT) Intent Comments: Before next appointment Planned Goals not documented Instructions Name Dates Details Instructions not documented Encounters Appointment; OLGA NG M.D. Encounter Diagnosis: Problem not documented On: 15-Dec-2017 14:00 Appointment; OLGA NG M.D. Encounter Diagnosis: Problem not documented On: 01-Feb-2018 11:00 Appointment; DAVE RAMOSSICHERELLE Encounter Diagnosis: Problem not documented On: 04-Feb-2018 [...]
--- OUTSIDE RECORDS SUMMARY | 2019-12-06 09:59 | XMS REPORT | Summary of Care ---
Author Author BERENICE Beltran, OLGA Celaya Unknown Address Unknown Phone Unavailable Care Team Providers Care Bobbin Collector Name Role Phone OLGA NG M.D. Unavailable [...] 02-Dec-2014 Active Vitamin D (Ergocalciferol) 1.25 MG (62217 UT) Oral Capsule TAKE 1 CAPSULE WEEKLY. [...] (Boostrix) on: 2008 Zoster (Zostavax) Lot #: [id number] on: 02-Jun-2014 Fluzone 9 MCG/STRAIN [place] Lot #: [id number] on: 25-Jul-2016 Prevnar 13 Intramuscular Suspension Lot #: [id number] on: 01-Feb-2018 Fluzone High-Dose 0.5 ML Intramuscular Suspension Prefilled Syringe Lot #: [id number] on: 05-Aug-2019 Pneumovax 23 25 MCG/0.5ML Injection Injectable Lot #: [id number] on: 05-Aug-2019 Shingrix 50 MCG/0.5ML Intramuscular Suspension [...] smoker Vital Signs Date Test Result Details [id number] BP Systolic 122 mm[Hg] Status: Comments: Location: RUE; Position: Sitting BP Diastolic 80 mm[Hg] Status: Comments: Location: [facility]; Position: Sitting Height 66.5 in Status: Weight 196.5 lb Status: Body Mass Index Calculated 31.24 kg/m2 Status: Body Surface Area Calculated 2 m2 Status: Temperature 97.5 f Status: Comments: Method: Oral Heart Rate 57 /min Status: Results Date Description Value Details [id number] [U] XRAY CHEST 2 VWS [id number] XR CHEST 2 VWS EXAM: XR CHEST 2 VWS DATE: 11/22/2019 11:29 AM TAR AND AMMONIA PUMP OPERATOR INDICATION: Preop clearance COMPARISON: 02/07/2014 TECHNIQUE: PA and lateral chest radiographs DISCUSSION: Lungs are symmetrically expanded.No pulmonary or pleural-based abnormality is identified. Pulmonary vascularity is normal. The heart size is normal. No acute bony abnormality is identified. IMPRESSION: No acute cardiopulmonary abnormality. 11/22/2019 11:38 AM TAR AND AMMONIA PUMP OPERATOR Dawit Garza [id number] [QLH] CBC (INCLUDES DIFF/PLT) WBC 3.2 {K/CMM} [...] Mean Platelet Volume 9.2 fL Range: 7.4-10.4 [id number] [QLH] Differential Segmented Neutrophils 52.3 % Range: 45.0-75.0 Monocytes 4.1 % Range: 2.0-12.0 Lymphocytes 40.5 % (Above high threshold) Range: 20.0-40.0 Eosinophils 2.4 % Range: 0.0-4.0 Basophils 0.7 % Range: 0.0-1.0 Segs-Bands # 1.7 {K/CMM} Range: 1.5-8.1 Lymphocytes # 1.3 {K/CMM} Range: 1.0-5.5 Monocytes # 0.1 {K/CMM} Range: 0.0-0.8 Eosinophils # 0.1 {K/CMM} Range: 0.0-0.5 [id number] [QLH] CMP W/EGFR Sodium Level 142 {mEq/l} Range: 135-145 Potassium Level 3.9 {mEq/l} Range: 3.5-5.1 Chloride Level 105 {mEq/l} Range: 95-109 Carbon Dioxide 32 {mEq/l} Range: 24-32 AGAP 8.9 {mEq/l} (Below low threshold) Range: 10.0-20.0 Glucose Lvl 90 mg/dl Range: 70-99 Comments: Adult reference range values reflect the clinical guidelinesof the [place] [employer]. Creatinine Lvl 0.80 mg/dl Range: [...] CALIPER database of pediatric reference intervals to the[facility] [place] analyzer (Clinical Biochemistry 46 (2013): 1777-6792). [facility] [employer] has not internally validated these referenceranges and [...] eGFR shouldbe multiplied by the estimated BMI. [id number] [[facility]] PROTHROMBIN W/INR + PARTIAL THROMBOPLASTIN TIMES PT [...]
--- OUTSIDE RECORDS SUMMARY | 2019-12-06 09:59 | XMS REPORT | Summary of Care ---
Author Author Raine Meyer M.A. Organization Unknown Address Unknown Phone Unavailable Care Team Providers Care Senior Major Gifts Officer Name Role Phone Raine Meyer M.A. Unavailable [...] 02-Dec-2014 Active Vitamin D (Ergocalciferol) 1.25 MG (05240 UT) Oral Capsule TAKE 1 CAPSULE WEEKLY. [...] (Boostrix) on: 2008 Zoster (Zostavax) Lot #: [id number] on: 02-Jun-2014 Fluzone 9 MCG/STRAIN [place] Lot #: [id number] on: 25-Jul-2016 Prevnar 13 Intramuscular Suspension Lot #: [id number] on: 01-Feb-2018 Fluzone High-Dose 0.5 ML Intramuscular Suspension Prefilled Syringe Lot #: [id number] on: 05-Aug-2019 Pneumovax 23 25 MCG/0.5ML Injection Injectable Lot #: [id number] on: 05-Aug-2019 Shingrix 50 MCG/0.5ML Intramuscular Suspension [...] smoker Vital Signs Date Test Result Details [id number] BP Systolic 122 mm[Hg] Status: Comments: Location: RUE; Position: Sitting BP Diastolic 80 mm[Hg] Status: Comments: Location: RUE; Position: Sitting Height 66.5 in Status: Weight 196.5 lb Status: Body Mass Index Calculated 31.24 kg/m2 Status: Body Surface Area Calculated 2 m2 Status: Temperature 97.5 f Status: Comments: Method: Oral Heart Rate 57 /min Status: Results Date Description Value Details [id number] [U] XRAY CHEST 2 VWS [id number] XR CHEST 2 VWS EXAM: XR CHEST 2 VWS DATE: 11/22/2019 11:29 AM UPHOLSTERY CUTTER INDICATION: Preop clearance COMPARISON: 02/07/2014 TECHNIQUE: PA and lateral chest radiographs DISCUSSION: Lungs are symmetrically expanded.No pulmonary or pleural-based abnormality is identified. Pulmonary vascularity is normal. The heart size is normal. No acute bony abnormality is identified. IMPRESSION: No acute cardiopulmonary abnormality. 11/22/2019 11:38 AM UPHOLSTERY CUTTER Dawit Shirlore [id number] [QLH] CBC (INCLUDES DIFF/PLT) WBC 3.2 {K/CMM} [...] Mean Platelet Volume 9.2 fL Range: 7.4-10.4 [id number] [QLH] Differential Segmented Neutrophils 52.3 % Range: 45.0-75.0 Monocytes 4.1 % Range: 2.0-12.0 Lymphocytes 40.5 % (Above high threshold) Range: 20.0-40.0 Eosinophils 2.4 % Range: 0.0-4.0 Basophils 0.7 % Range: 0.0-1.0 Segs-Bands # 1.7 {K/CMM} Range: 1.5-8.1 Lymphocytes # 1.3 {K/CMM} Range: 1.0-5.5 Monocytes # 0.1 {K/CMM} Range: 0.0-0.8 Eosinophils # 0.1 {K/CMM} Range: 0.0-0.5 [id number] [QL] CMP W/EGFR Sodium Level 142 {mEq/l} Range: 135-145 Potassium Level 3.9 {mEq/l} Range: 3.5-5.1 Chloride Level 105 {mEq/l} Range: 95-109 Carbon Dioxide 32 {mEq/l} Range: 24-32 AGAP 8.9 {mEq/l} (Below low threshold) Range: 10.0-20.0 Glucose Lvl 90 mg/dl Range: 70-99 Comments: Adult reference range values reflect the clinical guidelinesof the [place] [employer]. Creatinine Lvl 0.80 mg/dl Range: [...] CALIPER database of pediatric reference intervals to the[facility]ahGour[facility] Orig[employer] analyzer (Clinical Biochemistry 46 (2013): 2895-7536). [facility] [employer] has not internally validated these referenceranges [...] eGFR shouldbe multiplied by the estimated BMI. [id number] [QLH] PROTHROMBIN W/INR + PARTIAL THROMBOPLASTIN TIMES [...]
--- OUTSIDE RECORDS SUMMARY | 2019-12-06 10:00 | XMS REPORT | Summary of Care ---
Author Author Cheri Powell R.N. Organization Unknown Address Unknown Phone Unavailable Care Team Providers Care Quality Control Coordinator Name Role Phone OLGA NG M.D. Unavailable Unavailable JUVENAL SINGLETARY Unavailable Unavailable Cheri Powell R.N. Unavailable Unavailable OLGA NG MD Unavailable Unavailable [...] 02-Dec-2014 Active Vitamin D (Ergocalciferol) 1.25 MG (02472 UT) Oral Capsule TAKE 1 CAPSULE WEEKLY. [...] (Boostrix) on: 2008 Zoster (Zostavax) Lot #: [id number] on: 02-Jun-2014 Fluzone 9 MCG/STRAIN [place] Lot #: [id number] on: 25-Jul-2016 Prevnar 13 Intramuscular Suspension Lot #: [id number] on: 01-Feb-2018 Fluzone High-Dose 0.5 ML Intramuscular Suspension Prefilled Syringe Lot #: [id number] on: 05-Aug-2019 Pneumovax 23 25 MCG/0.5ML Injection Injectable Lot #: [id number] on: 05-Aug-2019 Shingrix 50 MCG/0.5ML Intramuscular Suspension [...] (finding) Vital Signs Date Test Result Details [id number] Systolic blood pressure 122 mm[Hg] Status: Comments: [...] /min Status: Results Date Description Value Details [id number] [U] XRAY CHEST 2 VWS [id number] XR CHEST 2 VWS EXAM: XR CHEST 2 VWS DATE: 11/22/2019 11:29 AM CHEMICAL PROCESS EQUIPMENT OPERATOR INDICATION: Preop clearance COMPARISON: 02/07/2014 TECHNIQUE: PA and lateral chest radiographs DISCUSSION: Lungs are symmetrically expanded.No pulmonary or pleural-based abnormality is identified. Pulmonary vascularity is normal. The heart size is normal. No acute bony abnormality is identified. IMPRESSION: No acute cardiopulmonary abnormality. 11/22/2019 11:38 AM CHEMICAL PROCESS EQUIPMENT OPERATOR Dawit Garza :39 [QLH] CBC (INCLUDES DIFF/PLT) [...] Mean Platelet Volume 9.2 fL Range: 7.4-10.4 [id number] [QLH] Differential Segmented Neutrophils 52.3 % Range: 45.0-75.0 Monocytes 4.1 % Range: 2.0-12.0 Lymphocytes 40.5 % (Above high threshold) Range: 20.0-40.0 Eosinophils 2.4 % Range: 0.0-4.0 Basophils 0.7 % Range: 0.0-1.0 Segs-Bands # 1.7 {K/CMM} Range: 1.5-8.1 Lymphocytes # 1.3 {K/CMM} Range: 1.0-5.5 Monocytes # 0.1 {K/CMM} Range: 0.0-0.8 Eosinophils # 0.1 {K/CMM} Range: 0.0-0.5 :39 [QL] CMP W/EGFR Sodium Level 142 {mEq/l} Range: 135-145 Potassium Level 3.9 {mEq/l} Range: 3.5-5.1 Chloride Level 105 {mEq/l} Range: 95-109 Carbon Dioxide 32 {mEq/l} Range: 24-32 AGAP 8.9 {mEq/l} (Below low threshold) Range: 10.0-20.0 Glucose Lvl 90 mg/dl Range: 70-99 Comments: Adult reference range values reflect the clinical guidelinesof the [place] Diabetes [employer]. Creatinine Lvl 0.80 mg/dl Range: [...] CALIPER database of pediatric reference intervals to the[facility] [place] analyzer (Clinical Biochemistry 46 (2013): 8097-4603). [facility] [employer] [facility] has not internally validated these referenceranges and [...] Planned Goals not documented Interventions Provided Discussion/Summary* Guideline Used: * Other: * Medication * Reason for Disposition: to receive medication. * Intended Caller Action: * Other: * tasked to beto at 1707.Patient requesting status of medication B12 and folic acid. Instructions Name Dates Details Instructions not documented [...]
[2019-12-06 12:48] VITALS: BP 110/88
== END | disposition home or self-care (01) ==
LOC: OR 09:54
PROVIDERS: ATTEND Ophthalmology
DX: H25.11 Age-related nuclear cataract, right eye (principal); I10 Essential (primary) hypertension; K21.9 Gastro-esophageal reflux disease without esophagitis; G47.33 Obstructive sleep apnea (adult) (pediatric)
CPT/HCPCS: 66984; 93005; J2250; J3010